=== PATIENT | male | born 1960 | race Caucasian/White ===

== ENCOUNTER 2016-08-29 17:02 | Emergency (ER) | payer OTHER ==
[2016-08-29 18:15] LABS: ABSOLUTE BASOPHIL COUNT 0 /CUMM (0.0-0.2); ABSOLUTE EOSINOPHIL COUNT 0 /CUMM (0.0-0.7); ABSOLUTE GRANULOCYTE CT 3.7 /CUMM (1.4-6.5); ABSOLUTE LYMPH COUNT 1.5 /CUMM (1.2-3.4); ABSOLUTE MONOCYTE COUNT 0.2 /CUMM (0.10-0.60); BASOPHIL % 0.5 % (0.0-2.0); EOSINOPHIL % 0.8 % (0-5); GRANULOCYTE % 66.9 % (42.2-75.2); HEMATOCRIT 49.2 % (42-52); MEAN CORPUSCULAR HGB 32.1 PG (27.0-31.0); MEAN CORPUSCULAR VOLUME 94.3 FL (80.0-94.0); MEAN PLATELET VOLUME 7.3 FL (7.4-10.4); PLATELET COUNT 183 /CUMM (130-400); RBC DISTRIBUTION WIDTH 14.1 % (11.5-14.5); RED BLOOD CELL CT 5.22 /CUMM (4.70-6.10); WHITE BLOOD CELL COUNT 5.5 /CUMM (4.8-10.8)
[2016-08-29] MEDS ORDERED: LISINOPRIL5 M1 PO (19:16)
[2016-08-29] MEDS ORDERED: PROPRANOLOL HCL40 M1 PO (19:17)
[2016-08-29] MEDS ORDERED: GABAPENTIN100 M2 PO (19:17)
[2016-08-29] MEDS ORDERED: DULOXETINE HCL30 MG PO (19:17)
--- NOTE | 2016-08-29 19:31 | ED PSYCHIATRIC COMPLAINT ---
History of Present Illness General Chief Complaint: ETOH/Drug Related Complaint Stated Complaint: REQUESTING DETOX PER PT Source: patient Exam Limitations: no limitations Vital Signs & Intake/Output Vital Signs & Intake/Output Vital Signs Date Time Temp Pulse Resp B/P Pulse O2 O2 Flow FiO2 Ox Delivery Rate 08/295 97.8 109 16 138/88 08/29 2314 97.8 109 16 138/88 93 Room Air 08/29 2150 Room Air 08/29 1922 98.1 101 20 148/97 08/29 1922 98.7 101 18 147/106 92 08/29 1730 98.1 110 20 148/97 98 ED Intake and Output 08/30 0000 08/29 1200 Intake Total 0 Output Total Balance 0 Intake, Oral 0 Patient 189 lb Weight Allergies Coded Allergies: No Known Allergies (08/29/16) Reconcile Medications Duloxetine HCl 30 MG CAPSULE.DR 1 CAP PO DAILY MOOD (Reported) Gabapentin 100 MG CAPSULE 1 CAP PO BID MOOD (Reported) Lisinopril 5 MG TABLET 1 TAB PO DAILY BP (Reported) Propranolol HCl 40 MG TABLET 1 TAB PO BID BP (Reported) Triage Note: PER PT REQUESTS ETOH DETOX USUALLY ABOUT 2 LITERS A DAY. DENIES DRUG USE. 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 DENIES SI/HI..... NO HX OF ETOH WITHDRAWAL SEIZURES. Triage Nurses Notes Reviewed? yes Onset: Abrupt Duration: hour(s): Timing: recent history Severity: moderate, severe HPI: 55-year-old male comes into emergency room requesting alcohol detox. Last drink was a couple hours prior to arrival. Patient has been drinking on and off since he was 15 years old. Patient drinks primarily wine. Patient has been drinking for over a month now. Denies any history of seizure withdrawal. Patient does report some hallucinations in the past when he stop drinking. Denies any suicidal or homicidal ideation. Patient lives by himself. He denies any other illicit drug use. Denies any other associated symptoms. (DANE MARIE,TRENT) Past History Travel History Traveled to [place] past 21 day No Medical History Any Pertinent Medical History? see below for history Neurological: NONE EENT: NONE Cardiovascular: hypertension Respiratory: NONE Hepatic: NONE Renal: NONE Musculoskeletal: NONE Psychiatric: NONE Endocrine: NONE Surgical History Surgical History: non-contributory Psychosocial History What is your primary language Liberian Tobacco Use: Current Daily Use Daily Tobacco Use Amount/Type: => 5 Cigarettes daily ETOH Use: alcoholic Family History Hx Contributory? No (TRENT TERRAZAS) Review of Systems Review of Systems Constitutional: Reports: no symptoms. EENTM: Reports: no symptoms. Respiratory: Reports: no symptoms. Cardiovascular: Reports: no symptoms. GI: Reports: no symptoms. Genitourinary: Reports: no symptoms. Musculoskeletal: Reports: no symptoms. Skin: Reports: no symptoms. Neurological/Psychological: Reports: see HPI. Hematologic/Endocrine: Reports: no symptoms. Immunologic/Allergic: Reports: no symptoms. All Other Systems: Reviewed and Negative (TRENT TERRAZAS) Physical Exam Physical Exam General Appearance: well developed/nourished, intoxicated Head: atraumatic Eyes: Bilateral: normal appearance, PERRL, EOMI. Ears, Nose, Throat: normal ENT inspection, hearing grossly normal Neck: normal inspection Respiratory: normal breath sounds, no respiratory distress Cardiovascular: regular rate/rhythm Extremities: normal range of motion Neurological/Psychiatric: awake, alert, normal mood/affect, calm Appearance/Memory/Insight: appropriate appearance Behavoir/Eye Contact/Speech: cooperative Thoughts/Hallucinations: no apparent hallucination Skin: intact, normal color, warm/dry SAD PERSONS Done? patient not suicidal (TRENT TERRAZAS) Progress Differential Diagnosis: dementia, drug intoxication, drug overdose, drug withdrawal, electrolyte abnormality, encephalitis, hypoglycemia, hypothyroidism, IC hem/mass/tumor, meningitis Plan of Care: Orders Procedure Date/time Status [facility] 08/29 193 Active URINE DRUG SCREEN FOR ER ONLY 08/29 1729 Complete LIPASE 08/29 173 Complete ETHANOL 08/29 1729 Complete COMPREHENSIVE METABOLIC PANEL 08/29 1729 Complete CBC WITHOUT DIFFERENTIAL 08/29 1729 Complete AMYLASE 08/29 173 Complete Laboratory Tests 08/29/16 1922: Urine Opiates Screen < 100.00, Methadone Screen < 40, Barbiturate Screen < 60, Ur Phencyclidine Scrn < 6.00, Amphetamines Screen 123, U Benzodiazepines Scrn < 85, Urine Cocaine Screen < 50, Urine Cannabis Screen < 5.00 08/29/16 1748: Anion Gap 21 H, Estimated GFR > 60, BUN/Creatinine Ratio 10.0, Glucose 100 H, Calcium 9.5, Total Bilirubin 0.8, AST 127 H, ALT 106 H, Alkaline Phosphatase 94, Total Protein 8.8 H, Albumin 5.1 H, Globulin 3.7, Albumin/Globulin Ratio 1.4, Amylase 63, Lipase 57, CBC w Diff NO MAN DIFF REQ, RBC 5.22, MCV 94.3 H, MCH 32.1 H, RDW 14.1, MPV 7.3 L, Gran % 66.9, Lymphocytes % 27.7, Monocytes % 4.1, Eosinophils % 0.8, Basophils % 0.5, Absolute Granulocytes 3.7, Absolute Lymphocytes 1.5, Absolute Monocytes 0.2, Absolute Eosinophils 0, Absolute Basophils 0, PUBS MCHC 34.0, Serum Alcohol 419.0 Hand-Off Endorsed To: BLAISE HOLCMOB MD Endorsed Time: 48 Pending: other ([email or web address]) Comments: Patient signout to Dr. holcomb. Patient is pending a 0 alcohol level and a CIWA score to see if he meets criteria for admission. (TRENT TERRAZAS) Comments: Patient declines to wait for sobriety. Home with significant other. (BLAISE HOLCOMB MD) Departure Departure Condition: Stable Clinical Impression Primary Impression: ETOH abuse Referrals: PATIENT HAS NO PRIMARY CARE DR (PCP/Family) (TRENT TERRAZAS) Departure Time of Disposition: 143 Disposition: HOME OR SELF CARE Departure Forms: DETOX FACILITIES LIST General Discharge Information PA/EQUITIES TRADER Co-Sign Statement Statement: ED Attending supervision documentation- x I saw and evaluated the patient. I have also reviewed all the pertinent lab results and diagnostic results. I agree with the findings and the plan of care as documented in the PA's/EQUITIES TRADER's documentation. [] I have reviewed the ED Record and agree with the PA's/EQUITIES TRADER's documentation. [] Additions or exceptions (if any) to the PAs/EQUITIES TRADER's note and plan are summarized below: [] (BLAISE HOLCOMB MD)
[2016-08-30 01:54] VITALS: BP 124/78
== END 2016-08-30 01:50 ==
LOC: EDBD 17:02 → ERH 17:02
PROVIDERS: Emergency Medicine
DX: F10.10 Alcohol abuse, uncomplicated (principal)
CPT/HCPCS: 80307; G0480